=== PATIENT | female | born 1960 | race Caucasian/White ===

== ENCOUNTER 2017-10-10 18:14 | Emergency (ER) | payer OTHER ==
[2017-10-10 18:40] VITALS: BP 124/80; PULSE 88; TEMP 98.6; BMI 33.0
[2017-10-10] MEDS ORDERED: AMOXICILLIN 250 MG CAPSULE PO ONE (18:45)
--- NOTE | 2017-10-10 18:45 | PDOC ---
History of Present Illness - General Chief Complaint: Ear Problem Stated Complaint: EAR PAIN Time Seen by Provider: 10/10/17 18:42 History Source: Patient Exam Limitations: No Limitations - History of Present Illness Initial Comments: 10/10/17 18:53 Best Contact: N/A Pmhx: N/A Pshx: L knee acl repair 2007/ c sections x3 (x36,33,30 years ago) Allergies: NKDA 57-year-old female with no medical history presents to the emergency department complaining of right eye irritation and left earache 1 day without fever, chills, nausea/vomiting, facial pains, nasal congestion, rhinorrhea, sore throat , cough, chest pain, shortness of breath. Patient denies any other complaints. Patient states she did not take any medication for her discomfort. Timing/Duration: 4-6 hours Past History - Past Medical History Allergies/Adverse Reactions: Allergies Allergy/AdvReac Type Severity Reaction Status Date / Time No Known Allergies Allergy Verified 10/10/17 18:38 Home Medications: Ambulatory Orders Cyclobenzaprine HCl [Flexeril] 5 mg PO TID PRN #20 tablet 09/16/15 Amoxicillin - [Amoxicillin 875mg Tablet -] 875 mg PO BID #14 tab 10/10/17 Erythromycin 0.5% Eye Ointment [Erythromycin 0.5% Eye Ointment -] 1 applic OS BID 3 Days #1 tube 10/10/17 COPD: No - Suicide/Smoking/Psychosocial Hx Smoking History: Never smoked Hx Alcohol Use: No Drug/Substance Use Hx: No Substance Use Type: None Review of Systems - Review of Systems Able to Perform ROS?: Yes Comments:: 10/10/17 18:55 CONSTITUTIONAL: Absent: fever, chills, diaphoresis, generalized weakness, malaise, loss of appetite HEENT: Absent: rhinorrhea, nasal congestion, throat pain, throat swelling, difficulty swallowing, mouth swelling, ear pain, eye pain, visual Changes CARDIOVASCULAR: Absent: chest pain, loss of consciousness, palpitations, irregular heart rate, peripheral edema RESPIRATORY: Absent: cough, shortness of breath, dyspnea with exertion, orthopnea, wheezing, stridor, hemoptysis GASTROINTESTINAL: Absent: abdominal pain, abdominal distension, nausea, vomiting, diarrhea, constipation, melena, hematochezia GENITOURINARY: Absent: dysuria, frequency, urgency, hesitancy, hematuria, flank pain, genital pain MUSCULOSKELETAL: Absent: myalgia, arthralgia, joint swelling SKIN: Absent: rash, itching, pallor HEMATOLOGIC/IMMUNOLOGIC: Absent: easy bleeding, easy bruising, lymphadenopathy, frequent infections ENDOCRINE: Absent: unexplained weight gain, unexplained weight loss, heat intolerance, cold intolerance NEUROLOGIC: Absent: headache, focal weakness or paresthesias, dizziness, unsteady gait, seizure, mental status changes, bladder or bowel incontinence PSYCHIATRIC: Absent: anxiety, depression, suicidal or homicidal ideation, hallucinations. Is the patient limited [place] proficient: No *Physical Exam - Vital Signs Last Vital Signs Temp Pulse Resp BP Pulse Ox 98.6 F 88 20 124/80 98 10/10/17 18:38 10/10/17 18:38 10/10/17 18:38 10/10/17 18:38 10/10/17 18:38 - Physical Exam Comments: 10/10/17 18:55 GENERAL: Well developed, well nourished. Awake and alert. No acute distress. HEENT: Left: TM: erythematous/bulging, neg exudates Right injected conjunctiva, neg hyphema Normocephalic, atraumatic. PERRLA, EOMI. No conjunctival pallor. Sclera are non- icteric. Moist mucous membranes. Oropharynx is clear. NECK: Supple. Full ROM. No JVD. Carotid pulses 2+ and symmetric, without bruits. No thyromegaly. No lymphadenopathy. CARDIOVASCULAR: Regular rate and rhythm. No murmurs, rubs, or gallops. Distal pulses are 2+ and symmetric. PULMONARY: No evidence of respiratory distress. Lungs clear to auscultation bilaterally. No wheezing, rales or rhonchi. ABDOMINAL: SKIN: Warm and dry. Normal capillary refill. No rashes. No jaundice. *DC/Admit/Observation/Transfer Diagnosis at time of Disposition: Conjunctivitis Qualifiers: Conjunctivitis type: acute Acute conjunctivitis type: viral Laterality: right Qualified Code(s): B30.9 - Viral conjunctivitis, unspecified LOM (left otitis media) Qualifiers: Otitis media type: other nonsuppurative Chronicity: acute Recurrence: not specified as recurrent Qualified Code(s): H65.192 - Other acute nonsuppurative otitis media, left ear - Discharge Dispostion Disposition: HOME Condition at time of disposition: Stable Admit: No - Prescriptions Prescriptions: Amoxicillin - [Amoxicillin 875mg Tablet -] 875 mg PO BID #14 tab Erythromycin 0.5% Eye Ointment [Erythromycin 0.5% Eye Ointment -] 1 applic OS BID 3 Days #1 tube - Referrals Referrals: Du Jones MD [Staff Physician] - - Patient Instructions Printed Discharge Instructions: Middle Ear Infection, DI for Conjunctivitis Additional Instructions: Avoid rubbing your eyes Tylenol or Motrin as needed for pain/fever Antibiotics as prescribed until completion Return to the ER for severe/persistent/worsening symptoms - Post Discharge Activity
[2017-10-10] MEDS ORDERED: ERYTHROMYCIN 0.5% OPHTHALMIC OINTMENT 3.5 GM TUBE OS ONE (18:46)
[2017-10-10] MEDS ORDERED: AMOXICILLIN 500 MG CAPSULE (FP) PO ONE (18:52)
== END 2017-10-10 19:05 | disposition home or self-care (01) ==
LOC: JERFT 18:14
DX: H65.192 Other acute nonsuppurative otitis media, left ear (principal); B30.9 Viral conjunctivitis, unspecified; B97.89 Other viral agents as the cause of diseases classified elsewhere
CPT/HCPCS: 99281-25

== ENCOUNTER 2017-11-10 15:45 | Emergency (ER) | payer OTHER ==
[2017-11-10 15:57] VITALS: BP 113/63; PULSE 96; TEMP 98.5; BMI 34.7
--- NOTE | 2017-11-10 15:57 | PDOC ---
Rapid Medical Evaluation Time Seen by Provider: 11/10/17 15:54 Medical Evaluation: Allergies Allergy/AdvReac Type Severity Reaction Status Date / Time No Known Allergies Allergy Verified 10/10/17 18:38 I have performed a brief in-person evaluation of this patient. The patient presents with a chief complaint of: left buttock burning pain traveling down back of left thigh. Injury occurred while shoveling. Pertinent physical exam findings: Pain with palpation of left gluteus muscles I have ordered the following: none The patient will proceed to the ED for further evaluation. Discharge Disposition - Diagnosis Sciatica Qualifiers: Laterality: left Qualified Code(s): M54.32 - Sciatica, left side - Referrals - Patient Instructions - Post Discharge Activity
[2017-11-10] MEDS ORDERED: KETOROLAC TROMETHAMINE 60 MG/2 ML VIAL IM ONE (17:20)
[2017-11-10] MEDS ORDERED: KETOROLAC TROMETHAMINE 60 MG/2 ML VIAL ONE (17:27)
--- NOTE | 2017-11-10 17:28 | PDOC ---
History of Present Illness - General Chief Complaint: Pain Stated Complaint: LEG PAIN Time Seen by Provider: 11/10/17 15:54 History Source: Patient - History of Present Illness Initial Comments: 11/10/17 17:21 57-year-old female presents to the ED with complaints of low back pain reading down the left buttock. Patient states symptoms began after shoveling the snow. Patient states has had pain like this in the past secondary to exertion but normally resolves with rest and states since symptoms continued this afternoon decided to come to the ER for further evaluation. Patient has no complaints of numbness, incontinence, or weakness. Occurred: reports: this morning Severity: reports: mild Pain Location: reports: back, lower extremity Associated Symptoms (Fall): trouble walking Past History - Past Medical History Allergies/Adverse Reactions: Allergies Allergy/AdvReac Type Severity Reaction Status Date / Time No Known Allergies Allergy Verified 11/10/17 15:54 Home Medications: Ambulatory Orders NK [No Known Home Medication] 11/10/17 COPD: No Other medical history: denies. - Suicide/Smoking/Psychosocial Hx Smoking History: Never smoked Hx Alcohol Use: No Drug/Substance Use Hx: No Substance Use Type: None Patient Lives Alone: No Lives with/in: spouse/SO Review of Systems - Review of Systems Able to Perform ROS?: Yes Constitutional: No: Symptoms Reported HEENTM: No: Symptoms Reported ABD/GI: No: Symptoms Reported Musculoskeletal: Yes: Back Pain, Muscle Pain Integumentary: No: Symptoms Reported Neurological: No: Symptoms reported *Physical Exam - Vital Signs Last Vital Signs Temp Pulse Resp BP Pulse Ox 98.5 F 96 H 19 113/63 96 11/10/17 15:54 11/10/17 15:54 11/10/17 15:54 11/10/17 15:54 11/10/17 15:54 - Physical Exam General Appearance: Yes: Nourished, Appropriately Dressed. No: Apparent Distress Gastrointestinal/Abdominal: positive: Soft. negative: Tenderness Extremity: positive: Normal Capillary Refill, Normal Inspection, Normal Range of Motion, Tender (left sciatica over left buttock) Integumentary: positive: Normal Color, Warm, Moist Neurologic: positive: Normal Mood/Affect, Motor Strength 5/5 (ambulatory) Medical Decision Making - Medical Decision Making 11/10/17 17:26 Pt with low back pain with left sided lower extremity sharp pain worsened with standing which began after shoveling snow. Pt with sciatica. Pt ordered for toradol im. Discharge home with motrin and flexeril *DC/Admit/Observation/Transfer Diagnosis at time of Disposition: Sciatica Qualifiers: Laterality: left Qualified Code(s): M54.32 - Sciatica, left side - Discharge Dispostion Disposition: HOME Condition at time of disposition: Good - Referrals - Patient Instructions Printed Discharge Instructions: DI for Back Pain With Sciatica Additional Instructions: Please take medication as prescribed. May apply ice to the affected area x 3 days and then heat thereafter. Please return to ED if symptoms continue or worsen. - Post Discharge Activity
== END 2017-11-10 17:35 | disposition home or self-care (01) ==
LOC: JERFT 15:45
PROC: 3E0233Z Introduction of Anti-inflammatory into Muscle, Percutaneous Approach (ICD-10-PCS; principal; 2017-11-10)
DX: M54.42 Lumbago with sciatica, left side (principal); X50.0XXA Overexertion from strenuous movement or load, initial encounter; Y93.H1 Activity, digging, shoveling and raking; Y92.89 Other specified places as the place of occurrence of the external cause; Y99.8 Other external cause status
CPT/HCPCS: 99281-25

== ENCOUNTER 2022-03-16 19:01 | Emergency (ER) | payer OTHER ==
[2022-03-16 19:22] VITALS: BP 106/73; PULSE 92; RESP 20; TEMP 98.1; BMI 35.2
== END 2022-03-16 19:53 | disposition home or self-care (01) ==
LOC: JER 19:01
DX: S80.862A Insect bite (nonvenomous), left lower leg, initial encounter (principal); W57.XXXA Bitten or stung by nonvenomous insect and other nonvenomous arthropods, initial encounter
CPT/HCPCS: 99281-25

== ENCOUNTER 2024-12-14 16:11 | Emergency (ER) | payer SELFPAY ==
[2024-12-14 16:16] VITALS: BP 115/74; PULSE 105; RESP 18; TEMP 98.1; BMI 35.1
[2024-12-14] MEDS ORDERED: ACETAMINOPHEN 500 MG TABLET (FP) ONE (17:34)
[2024-12-14] MEDS ORDERED: DEXAMETHASONE SOD PHOSPHATE 10 MG/1 ML VIAL ONE (17:34)
[2024-12-14] MEDS: DEXAMETHASONE SOD PHOSPHATE 10 MG/1 ML VIAL PO ONE (17:38)
[2024-12-14] MEDS: ACETAMINOPHEN 500 MG TABLET (FP) PO ONE (17:38)
== END 2024-12-14 18:32 | disposition home or self-care (01) ==
LOC: JERFT 16:11
DX: J03.90 Acute tonsillitis, unspecified (principal); M79.10 Myalgia, unspecified site; R68.83 Chills (without fever)
CPT/HCPCS: 0241U-QW; 87651; 99283-25; J1100